=== PATIENT | female | born 1985 | race Caucasian/White ===

== ENCOUNTER 2017-09-03 23:35 | Emergency (ER) | payer OTHER ==
[~2017-09-03] VITALS: Ht 162.6 cm; Wt 49.9 kg
[~2017-09-03 23:35] MED LIST: PRENATAL1 TA2 PO
[2017-09-04 00:21] VITALS: BP 131/87
--- NOTE | 2017-09-04 00:38 | ED INFLUENZA/URI COMPLAINT ---
History of Present Illness General Chief Complaint: General Adult Stated Complaint: "COUGH,SOB" Source: patient Exam Limitations: no limitations Vital Signs & Intake/Output Vital Signs & Intake/Output Vital Signs Date Time Temp Pulse Resp B/P B/P Pulse O2 O2 Flow FiO2 Mean Ox Delivery Rate 09/04 0046 100 Room Air 09/04 0021 98.6 73 18 131/87 100 Room Air Allergies Coded Allergies: NO KNOWN ALLERGIES (12/23/14) Reconcile Medications Albuterol Sulfate (Ventolin Hfa) 90 MCG HFA.AER.AD 2 PUF INH Q4-6 PRN PRN cough/wheeze Amoxicillin/Potassium Clav (Augmentin 875-125 Tablet) 875 MG-125 MG TABLET 1 TAB PO BID bronchitis Benzonatate (Tessalon Perle) 100 MG CAPSULE 1-2 CAP PO TID PRN cough Loratadine (Claritin) 10 MG TABLET 1 TAB PO DAILY allergies PNV95/FERROUS FUMARATE/FA ( Formula Tablet) 28 MG IRON-800 MCG TABLET 1 TAB PO DAILY CHILDBIRTH (Reported) Triage Note: PT TO ED C/O COUGH FOR A WEEK, AND SOB WITH EXERTION. WORSE IN THE EVENING. DID NOT TAKE ANY MEDS AT HOME. O2 SAT 100% ON RA IN TRIAGE. AFEBRILE. "I WANTED TO BE SURE I DIDN'T HAVE THE FLU, BRONCHITIS OR PNEUMONIA. MASK IN PLACE Triage Nurses Notes Reviewed? yes Onset: Gradual Duration: week(s):, waxing and waning Timing: recent history Severity: mild Prior Episodes/Possible Cause: no prior episodes Associated Symptoms: cough : No Patient currently breastfeeds: No HPI: 31 yo woman cough x 1 week "not getting better." "I feel like it's in my chest." No phlegm, sinus pressure, sinus drainage, fever, chills. She is otherwise well. Past History Travel History Traveled to [place] past 21 day No Medical History Any Pertinent Medical History? see below for history Psychiatric: anxiety Surgical History Surgical History: TONSILECTOMY Psychosocial History What is your primary language Ch[place] Tobacco Use: Never used ETOH Use: denies use Illicit Drug Use: denies illicit drug use Family History Hx Contributory? No Review of Systems Review of Systems Constitutional: Reports: no symptoms. EENTM: Reports: no symptoms. Respiratory: Reports: no symptoms. Cardiovascular: Reports: no symptoms. GI: Reports: no symptoms. Genitourinary: Reports: no symptoms. Musculoskeletal: Reports: no symptoms. Skin: Reports: no symptoms. Neurological/Psychological: Reports: no symptoms. Hematologic/Endocrine: Reports: no symptoms. Immunologic/Allergic: Reports: no symptoms. All Other Systems: Reviewed and Negative Physical Exam Physical Exam General Appearance: well developed/nourished, no apparent distress Head: atraumatic, normal appearance Eyes: Bilateral: normal appearance. Ears, Nose, Throat: normal ENT inspection, moist mucous membrane Neck: normal inspection, supple, full range of motion Respiratory: normal breath sounds, chest non-tender, no respiratory distress, quiet respiration, lungs clear Cardiovascular: regular rate/rhythm Gastrointestinal: normal bowel sounds, soft, non-tender, no organomegaly Back: normal inspection, normal range of motion Extremities: normal inspection, normal capillary refill, normal range of motion, no edema Neurologic/Psych: no motor/sensory deficits, awake, alert, oriented x 3 Skin: intact, normal color, warm/dry Core Measures Sepsis Present: No Sepsis Focused Exam Completed? No Progress Differential Diagnosis: otitis, pharyngitis, sinusitis, bronchitis Plan of Care: given duration of sx and clinical history, will treat with abx and supportive medications. Initial ED EKG: none Departure Departure Disposition: HOME OR SELF CARE Condition: Stable Clinical Impression Primary Impression: Bronchitis Referrals: Maria Del Rosario De La Cruz DO (PCP/Family) Departure Forms: Customer Survey General Discharge Information Prescriptions: Current Visit Scripts Amoxicillin/Potassium Clav (Augmentin 875-125 Tablet) 1 TAB PO BID #20 TAB Benzonatate (Tessalon Perle) 1-2 CAP PO TID PRN cough #30 CAP Ref 1 Loratadine (Claritin) 1 TAB PO DAILY #30 TAB Albuterol Sulfate (Ventolin Hfa) 2 PUF INH Q4-6 PRN PRN cough/wheeze #1 INHAL
[2017-09-04] MEDS ORDERED: TESSALON PERLE100 M1 PO (00:39)
[2017-09-04] MEDS ORDERED: AUGMENTIN 875-1 EACH PO (00:39)
[2017-09-04] MEDS ORDERED: CLARITIN10 M1 PO (00:39)
[2017-09-04] MEDS ORDERED: VENTOLIN HFA18 GM INH (00:40)
== END 2017-09-04 00:47 ==
LOC: ERH 23:35
DX: J40 Bronchitis, not specified as acute or chronic (principal)